=== PATIENT | female | born 1970 | race American Indian/Alaskan Native ===

== ENCOUNTER 2016-11-12 11:31 | Emergency (ER) | payer OTHER ==
--- NOTE | 2016-11-12 13:22 | EDM.PDOC ---
ED HPI GENERAL MEDICAL PROBLEM - General Chief Complaint: Diabetic Complaint Stated Complaint: CLAMMY FEELING, DIABETIC, BLURRY VISION Time Seen by Provider: 11/12/16 11:45 Source of Information: Reports: Patient History Limitations: Reports: No Limitations - History of Present Illness INITIAL COMMENTS - FREE TEXT/NARRATIVE: Maria Alejandra comes in with a 3 day hx of feeling run down, tired, some blurred vision, and fatiguabllity. 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 She takes Levemir U100 25 u bid, most recent FBS 323 mg% this am. She is not reporting wt loss, fever, chills, sweats, chest pain, SOB, Gi or upset, or rashes. She has not missed work, but did leave work early this am to come to the ED. - Related Data Allergies Allergy/AdvReac Type Severity Reaction Status Date / Time codeine Allergy Hives Verified 11/12/16 12:32 Home Meds: Home Meds Insulin Detemir [Levemir] 25 unit SQ BID 11/12/16 [History] Past Medical History Endocrine/Metabolic History: Reports: Diabetes, Type I Oncologic (Cancer) History: Reports: Cervix, Ovarian, Uterine Social & Family History - Tobacco Use Smoking Status *Q: Current Every Day Smoker Years of Tobacco use: 30 Packs/Tins Daily: 0.3 - Caffeine Use Caffeine Use: Reports: Coffee - Recreational Drug Use Recreational Drug Use: No ED ROS GENERAL - Review of Systems Review Of Systems: See Below Constitutional: Reports: Malaise, Fatigue HEENT: Reports: Other (blurred vision) Respiratory: Reports: No Symptoms Cardiovascular: Reports: No Symptoms Endocrine: Reports: Fatigue GI/Abdominal: Reports: No Symptoms : Reports: No Symptoms Musculoskeletal: Reports: No Symptoms Skin: Reports: No Symptoms Neurological: Reports: No Symptoms Psychiatric: Reports: No Symptoms Hematologic/Lymphatic: Reports: No Symptoms Immunologic: Reports: No Symptoms ED EXAM, GENERAL - Physical Exam Exam: See Below Exam Limited By: No Limitations General Appearance: Alert, WD/WN, No Apparent Distress, Lethargic Eye Exam: Bilateral Eye: Normal Inspection, PERRL Ears: Normal External Exam, Normal TMs Nose: Normal Inspection Throat/Mouth: Normal Inspection, Normal Oropharynx Head: Normocephalic Neck: Normal Inspection, Supple, Non-Tender, Full Range of Motion Respiratory/Chest: Lungs Clear, Normal Breath Sounds, Chest Non-Tender Cardiovascular: Regular Rate, Rhythm, No Murmur GI/Abdominal: Normal Bowel Sounds, Soft, Non-Tender, No Organomegaly, No Distention, No Mass (Female) Exam: Deferred Rectal (Female) Exam: Deferred Back Exam: Normal Inspection Extremities: Normal Inspection Neurological: Alert, Oriented, CN II-XII Intact, Normal Cognition, Normal Gait, No Motor/Sensory Deficits Psychiatric: Normal Affect, Depressed Mood Skin Exam: Warm, Dry, Intact Lymphatic: No Adenopathy Course - Vital Signs Text/Narrative:: Following assessment at the [facility] ED, screening labs included: Hgb 15.7 gm, WBC 5 ,700, plts 229,000; Na 131, K 3.9; non FBS 352 mg %; Aic 11.9 %; Troponin I < 0.01; UA noting sp gr 1.020, BS 4+, ket neg; diabetes is poorly controlled, and will adjust insulin management. - Orders/Labs/Meds Orders: Active Orders 24 hr Category Date Time Status EKG 12 Lead [EK] Routine Ther 11/12/16 11:56 Ordered Labs: Laboratory Tests 11/12/16 11/12/16 11/12/16 Range/Units 11:55 12:11 12:11 WBC 5.7 (4.5-12.0) X10-3/uL RBC 4.77 (3.23-5.20) x10(6)uL Hgb 15.7 H (11.5-15.5) g/dL Hct 46.1 (30.0-51.3) % MCV 96.6 H (80-96) fL MCH 33.0 (27.7-33.6) pg MCHC 34.2 (32.2-35.4) g/dL RDW 11.7 (11.5-15.5) % Plt Count 229 (125-369) X10(3)uL MPV 10.3 (7.4-10.4) fL Neut % (Auto) 62.5 (46-82) % Lymph % (Auto) 27.9 (13-37) % Iron % (Auto) 6.8 (4-12) % Eos % (Auto) 2 (1.0-5.0) % Baso % (Auto) 1 (0-2) % Neut # (Auto) 3.5 (1.6-8.3) # Lymph # (Auto) 1.6 (0.6-5.0) # Iron # (Auto) 0.4 (0.0-1.3) # Eos # (Auto) 0.1 (0.0-0.8) # Baso # (Auto) 0.1 (0.0-0.2) # Sodium 131 L (135-145) mmol/L Potassium 3.9 (3.5-5.3) mmol/L Chloride 102 (100-110) mmol/L Carbon Dioxide 23 (23-29) mmol/L BUN 8 (5-20) mg/dL Creatinine 0.5 L (0.6-1.3) mg/dL Est Cr Clr Drug Dosing TNP Estimated GFR (MDRD) > 60 (>60) BUN/Creatinine Ratio 16.0 (9-20) Glucose 352 H (80-116) mg/dL Hemoglobin A1c (4.0-6.0) % Calcium 9.4 (8.6-10.2) mg/dL Total Bilirubin 0.5 (0.1-1.3) mg/dL AST 24 (5-27) IU/L ALT 24 (14-26) IU/L Alkaline Phosphatase 79 (56-112) IU/L Troponin I (0.02-0.06) NG/ML Total Protein 7.2 (6.0-8.0) g/dL Albumin 3.8 (3.5-5.2) g/dL Globulin 3.4 g/dL Albumin/Globulin Ratio 1.1 Urine Color Yellow (YELLOW) Urine Appearance Slightly cloudy (CLEAR) Urine pH 5.0 (5.0-6.5) Ur Specific [place] 1.020 (1.010-1.025) Urine Protein Negative (NEGATIVE) mg/dL Urine Glucose (UA) >1000 H (NEGATIVE) mg/dL Urine Ketones Negative (NEGATIVE) mg/dL Urine Occult Blood Large H (NEGATIVE) Urine Nitrite Negative (NEGATIVE) Urine Bilirubin Negative (NEGATIVE) Urine Urobilinogen Normal (NEGATIVE) mg/dL Ur Leukocyte Esterase Negative (NEGATIVE) Urine WBC 0-5 (0) Ur Squamous Epith Cells Few H (NS,R,O) Urine Bacteria Few H (NS) 11/12/16 11/12/16 Range/Units 12:11 12:11 WBC (4.5-12.0) X10-3/uL RBC (3.23-5.20) x10(6)uL Hgb (11.5-15.5) g/dL Hct (30.0-51.3) % MCV (80-96) fL MCH (27.7-33.6) pg MCHC (32.2-35.4) g/dL RDW (11.5-15.5) % Plt Count (125-369) X10(3)uL MPV (7.4-10.4) fL Neut % (Auto) (46-82) % Lymph % (Auto) (13-37) % Iron % (Auto) (4-12) % Eos % (Auto) (1.0-5.0) % Baso % (Auto) (0-2) % Neut # (Auto) (1.6-8.3) # Lymph # (Auto) (0.6-5.0) # Iron # (Auto) (0.0-1.3) # Eos # (Auto) (0.0-0.8) # Baso # (Auto) (0.0-0.2) # Sodium (135-145) mmol/L Potassium (3.5-5.3) mmol/L Chloride (100-110) mmol/L Carbon Dioxide (23-29) mmol/L BUN (5-20) mg/dL Creatinine (0.6-1.3) mg/dL Est Cr Clr Drug Dosing Estimated GFR (MDRD) (>60) BUN/Creatinine Ratio (9-20) Glucose (80-116) mg/dL Hemoglobin A1c 11.9 H (4.0-6.0) % Calcium (8.6-10.2) mg/dL Total Bilirubin (0.1-1.3) mg/dL AST (5-27) IU/L ALT (14-26) IU/L Alkaline Phosphatase (56-112) IU/L Troponin I < 0.01 L (0.02-0.06) NG/ML Total Protein (6.0-8.0) g/dL Albumin (3.5-5.2) g/dL Globulin g/dL Albumin/Globulin Ratio Urine Color (YELLOW) Urine Appearance (CLEAR) Urine pH (5.0-6.5) Ur Specific [place] (1.010-1.025) Urine Protein (NEGATIVE) mg/dL Urine Glucose (UA) (NEGATIVE) mg/dL Urine Ketones (NEGATIVE) mg/dL Urine Occult Blood (NEGATIVE) Urine Nitrite (NEGATIVE) Urine Bilirubin (NEGATIVE) Urine Urobilinogen (NEGATIVE) mg/dL Ur Leukocyte Esterase (NEGATIVE) Urine WBC (0) Ur Squamous Epith Cells (NS,R,O) Urine Bacteria (NS) Departure - Departure Time of Disposition: 13:40 Disposition: Home, Self-Care 01 Condition: fair Clinical Impression: Type 2 diabetes mellitus Qualifiers: Diabetes mellitus complication status: with ophthalmic complications Diabetes mellitus complication detail: with other ophthalmic complication Diabetes mellitus detention insulin use: with 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 I advised increasing Levemir u-100 to 27 u SC bid, and continue glu-glu checks. Spouse was in attendance, and all questions were answered. 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
[2016-11-12 17:00] VITALS: BP 133/85
== END 2016-11-12 13:50 | disposition home or self-care (01) ==
LOC: FB.ED 11:31
DX: E11.39 Type 2 diabetes mellitus with other diabetic ophthalmic complication (principal); F17.210 Nicotine dependence, cigarettes, uncomplicated; Z79.4 Long term (current) use of insulin; Z88.5 Allergy status to narcotic agent
CPT/HCPCS: 36415; 80053; 81001; 83036; 84484; 85025; 93005; 99284

== ENCOUNTER 2018-07-18 06:20 | Emergency (ER) | payer OTHER ==
[2018-07-18] MEDS ORDERED: Lidocaine 2% 20 ML MDV INFILT ONE (06:21)
--- NOTE | 2018-07-18 06:54 | EDM.PDOC ---
ED HPI GENERAL MEDICAL PROBLEM - General Stated Complaint: LT INDEX FINGER LACERATION Time Seen by Provider: 07/18/18 06:49 Source of Information: Reports: Patient History Limitations: Reports: No Limitations - History of Present Illness INITIAL COMMENTS - FREE TEXT/NARRATIVE: Laceration by cutter at work,left pinky finger - Related Data Allergies Allergy/AdvReac Type Severity Reaction Status Date / Time codeine Allergy Hives Verified 11/12/16 12:32 Home Meds: Home Meds Insulin Detemir [Levemir] 25 unit SQ BID 11/12/16 [History] Past Medical History Endocrine/Metabolic History: Reports: Diabetes, Type I Oncologic (Cancer) History: Reports: Cervix, Ovarian, Uterine Social & Family History - Family History Family Medical History: Noncontributory - Caffeine Use Caffeine Use: Reports: Coffee, Soda Review of Systems - Review of Systems Review Of Systems: ROS reveals no pertinent complaints other than HPI. ED EXAM, GENERAL - Physical Exam Exam: See Below Free Text/Narrative:: 2 cm laceration involving left pinky finger,distal phalanx. No neurological deficit.Appears clean. Exam Limited By: No Limitations General Appearance: Alert, WD/WN ED TRAUMA EXTREMITY PROCEDURES - Laceration/Wound Repair Left Upper Distal Digit - 2nd (Index) Appearance: Superficial Distal NVT: Neuro & Vascular Intact, No Tendon Injury Anesthetic Type: Local Local Anesthesia - Lidocaine (Xylocaine): 2% Plain Local Anesthetic Volume: 4cc Skin Prep: Chlorhexidine (Hibiciens) Exploration/Debridement/Repair: In a Bloodless Field, No Foreign Material Found Closed With: Sutures Suture Size: 4-0 Suture Type: Prolene, Interrupted, Simple Departure - Departure Time of Disposition: 06:52 Disposition: Home, Self-Care 01 Condition: Good Clinical Impression: Laceration - Discharge Information Referrals: PCP,None [Primary Care Provider] - - Problem List & Annotations (1) Laceration SNOMED Code(s): 666647682 Code(s): YDD6241 - Status: Acute - Problem List Review Problem List Initiated/Reviewed/Updated: Yes - Assessment/Plan Plan: Placed 4 sutures after digital block with Lidocaine. Remove after 7 days
[2018-07-18 07:52] VITALS: BP 138/84
== END 2018-07-18 07:10 | disposition home or self-care (01) ==
LOC: FB.ED 06:20
DX: S61.217A Laceration without foreign body of left little finger without damage to nail, initial encounter (principal); E10.9 Type 1 diabetes mellitus without complications; Z88.5 Allergy status to narcotic agent; W26.9XXA Contact with unspecified sharp object(s), initial encounter; Y99.0 Civilian activity done for income or pay
CPT/HCPCS: 12001; 99282

== ENCOUNTER 2019-01-29 17:12 | Emergency (ER) | payer OTHER ==
--- NOTE | 2019-01-29 17:55 | EDM.PDOC ---
ED HPI GENERAL MEDICAL PROBLEM - General Chief Complaint: Lower Extremity Injury/Pain Stated Complaint: LT LEG WOUND INFECTED Time Seen by Provider: 01/29/19 17:50 Source of Information: Reports: Patient History Limitations: Reports: No Limitations - History of Present Illness INITIAL COMMENTS - FREE TEXT/NARRATIVE: Patient sustained a burn to her left lower leg on 01/17/19 when she became caught between a wall and a hot iron. Complains of pain to the area. Has not sought medical attention. Had been applying Silvadene cream, but ran out. Is also out of Levimir, prescription will be delivered in 2 days. She is taking Tylenol and Ibuprofen for pain. Endorses subjective fever. 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, NSAIDS L lateral calf Pain Score (Numeric/FACES): 8 - Related Data Allergies Allergy/AdvReac Type Severity Reaction Status Date / Time codeine Allergy Hives Verified 01/29/19 17:21 Home Meds: Home Meds Insulin Detemir [Levemir] 60 unit SQ BID 11/12/16 [History] Amoxicillin/Clavulanate K [Augmentin 875-125 MG] 1 tab PO BID #20 tablet [Rx] Gabapentin [Neurontin] 100 mg PO TID 01/29/19 [History] Silver Sulfadiazine [Silvadene 1% Cream 400 GM] 20 gm TOP DAILY #1 jar 01/29/19 [Rx] metFORMIN [Glucophage] 500 mg PO TIDMEALS 01/29/19 [History] Past Medical History Cardiovascular History: Reports: Hypertension Gastrointestinal History: Reports: GERD Genitourinary History: Reports: None 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 Oncologic (Cancer) History: Reports: Cervix Other Oncologic History: precancerous cells - Infectious Disease History Infectious Disease History: Reports: Chicken Pox - Past Surgical History GI Surgical History: Reports: Appendectomy, Cholecystectomy Female Surgical History: Reports: Section, Tubal Ligation Other Female Surgeries/Procedures: CS x 4 Social & Family History - Family History Family Medical History: Noncontributory - Tobacco Use Smoking Status *Q: Former Smoker Years of Tobacco use: 1 Used Tobacco, but Quit: Yes Month/Year Tobacco Last Used: 1989 - Caffeine Use Caffeine Use: Reports: Coffee, Tea - Recreational Drug Use Recreational Drug Use: No Review of Systems - Review of Systems Review Of Systems: ROS reveals no pertinent complaints other than HPI. ED EXAM, GENERAL - Physical Exam Exam: See Below Exam Limited By: No Limitations General Appearance: Alert, WD/WN, No Apparent Distress Nose: Normal Inspection Throat/Mouth: No Airway Compromise Head: Atraumatic Neck: Full Range of Motion Respiratory/Chest: No Respiratory Distress Peripheral Pulses: 2+: Dorsalis Pedis (L) Extremities: Other (11 x 3 cm left lower leg burn, scabbed, weeping clear serosanguinous fluid, mild surrounding reactive erythema, no cellulitis.) Neurological: Alert, Normal Cognition Skin Exam: Other (as above) Course - Vital Signs Last Recorded V/S: Last Vital Signs Temp 36.8 C 01/29/19 17:20 Pulse 90 01/29/19 17:20 Resp 18 01/29/19 17:20 BP 138/85 01/29/19 17:20 Pulse Ox 99 01/29/19 17:20 - Orders/Labs/Meds Orders: Active Orders 24 hr Category Date Time Status Accu Check [Blood Glucose Check, Bedside] [RC] ONETIME Care 01/29/19 17:37 Ordered Amoxicillin/Clavulanate K [Augmentin 875 MG/125 MG] Med 01/29/19 17:47 Once 1 tab PO ONETIME ONE Medication Orders Amoxicillin/Clavulanate Potassium (Augmentin 875 Mg/125 Mg) 1 tab PO ONETIME ONE Stop: 01/29/19 17:48 Meds: Medications Generic Name Dose Route Start Last Admin Trade Name Freq PRN Reason Stop Dose Admin Amoxicillin/Clavulanate Potassium 1 tab 01/29/19 17:47 Augmentin 875 Mg/125 Mg PO 01/29/19 17:48 ONETIME ONE Discontinued Medications Generic Name Dose Route Start Last Admin Trade Name Freq PRN Reason Stop Dose Admin Silver Sulfadiazine 400 gm 01/29/19 17:46 Silvadene 1% Cream 400 Gm TOP 01/29/19 17:47 ONETIME ONE - Re-Assessments/Exams Free Text/Narrative Re-Assessment/Exam: 01/29/19 18:02 Accu check: 305 Departure - Departure Time of Disposition: 18:01 Disposition: Home, Self-Care 01 Condition: Good Clinical Impression: Burn of leg, left, second degree Qualifiers: Encounter type: initial encounter Qualified Code(s): T24.202A - Burn of second degree of unspecified site of left lower limb, except ankle and foot, initial encounter - Discharge Information *PRESCRIPTION DRUG MONITORING PROGRAM REVIEWED*: No *COPY OF PRESCRIPTION DRUG MONITORING REPORT IN PATIENT CRISTINO: Not Applicable Prescriptions: Amoxicillin/Clavulanate K [Augmentin 875-125 MG] 1 tab PO BID #20 tablet Silver Sulfadiazine [Silvadene 1% Cream 400 GM] 20 gm TOP DAILY #1 jar Instructions: Burn Care, Adult, [id number] Referrals: Zheng Mc MD [Physician] - 3 Days Additional Instructions: Fill the prescriptions for Silvadene and Augmentin and take as directed. Continue Tylenol and/or Ibuprofen as needed to control pain. Follow up with Dr. Mc in 2-3 days. Return to the ER if symptoms worsen. - My Orders Last 24 Hours: My Active Orders 01/29/19 17:37 Accu Check [Blood Glucose Check, Bedside] [RC] ONETIME 01/29/19 17:47 Amoxicillin/Clavulanate K [Augmentin 875 MG/125 MG] 1 tab PO ONETIME ONE - Assessment/Plan Last 24 Hours: My Active Orders 01/29/19 17:37 Accu Check [Blood Glucose Check, Bedside] [RC] ONETIME 01/29/19 17:47 Amoxicillin/Clavulanate K [Augmentin 875 MG/125 MG] 1 tab PO ONETIME ONE
[2019-01-29] MEDS: Amoxicillin/Clavulanate K 875-125 MG Tab PO ONE (18:08)
[2019-01-29] MEDS: Silver Sulfadiazine 1% Crm 400 GM Jar TOP ONE (18:09)
[2019-01-29] MEDS: Silver Sulfadiazine 1% Crm 50 GM Tube TOP ONE (18:09)
[2019-01-29 19:16] VITALS: BP 148/91
== END 2019-01-29 18:28 | disposition home or self-care (01) ==
LOC: FB.ED 17:12
DX: T24.202A Burn of second degree of unspecified site of left lower limb, except ankle and foot, initial encounter (principal); E11.9 Type 2 diabetes mellitus without complications; Z86.2 Personal history of diseases of the blood and blood-forming organs and certain disorders involving the immune mechanism; Z87.891 Personal history of nicotine dependence; Z88.5 Allergy status to narcotic agent; Z79.4 Long term (current) use of insulin; Z79.899 Other long term (current) drug therapy; X15.8XXA Contact with other hot household appliances, initial encounter
CPT/HCPCS: 82962; 99282; A9270

== ENCOUNTER 2019-05-04 10:20 | Emergency (ER) | payer OTHER ==
--- NOTE | 2019-05-04 10:42 | EDM.PDOC ---
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 There was no noise or reported swelling. There is no prior injury to L ankle. She has taken no meds. - Related Data Allergies Allergy/AdvReac Type Severity Reaction Status Date / Time codeine Allergy Hives Verified 01/29/19 17:21 Home Meds: Home Meds Insulin Detemir [Levemir] 60 unit SQ BID 11/12/16 [History] Amoxicillin/Clavulanate K [Augmentin 875-125 MG] 1 tab PO BID #20 tablet [Rx] Gabapentin [Neurontin] 100 mg PO TID 01/29/19 [History] Silver Sulfadiazine [Silvadene 1% Cream 400 GM] 20 gm TOP DAILY #1 jar 01/29/19 [Rx] metFORMIN [Glucophage] 500 mg PO TIDMEALS 01/29/19 [History] Past Medical History Cardiovascular History: Reports: Hypertension Gastrointestinal History: Reports: GERD Genitourinary History: Reports: None 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 Oncologic (Cancer) History: Reports: Cervix Other Oncologic History: precancerous cells - Infectious Disease History Infectious Disease History: Reports: Chicken Pox - Past Surgical History GI Surgical History: Reports: Appendectomy, Cholecystectomy Female Surgical History: Reports: Section, Tubal Ligation Other Female Surgeries/Procedures: CS x 4 Social & Family History - Family History Family Medical History: Noncontributory - Caffeine Use Caffeine Use: Reports: Coffee, Tea Review of Systems - Review of Systems Review Of Systems: Comprehensive ROS is negative, except as noted in HPI. ED EXAM, GENERAL - Physical Exam Exam: See Below Exam Limited By: No Limitations General Appearance: Alert, WD/WN, Mild Distress Head: Atraumatic, Normocephalic Neck: Normal Inspection Respiratory/Chest: Lungs Clear, Chest Non-Tender Cardiovascular: Regular Rate, Rhythm Back Exam: Normal Inspection Extremities: Limited Range of Motion (L ankle: no visible swelling, tenderness overlying lateral malleolus, no joint effusion, mild tenderness of ant tib- talar ligament; drawer sign neg.; no forefoot or midfoot injury apparent) Neurological: Alert, Oriented, CN II-XII Intact, No Motor/Sensory Deficits Psychiatric: Normal Affect, Normal Mood Skin Exam: Warm, Dry, Intact, Normal Color Lymphatic: No Adenopathy Course - Vital Signs Text/Narrative:: I reviewed x rays of L ankle, no visible deformity identified. She was fitted with an AirCast splint. Last Recorded V/S: Last Vital Signs Temp 36.6 C 05/04/19 10:20 Pulse 91 05/04/19 10:20 Resp 17 05/04/19 10:20 BP 146/85 H 05/04/19 10:20 Pulse Ox 97 05/04/19 10:20 - Orders/Labs/Meds Orders: Active Orders 24 hr Category Date Time Status Ankle Min 3V Lt [CR] Stat Exams 05/04/19 10:34 Ordered Departure - Departure Time of Disposition: 10:53 Disposition: Home, Self-Care 01 Condition: Fair Clinical Impression: Sprain of left ankle Qualifiers: Encounter type: initial encounter Involved ligament of ankle: tibiofibular ligament Qualified Code(s): S93.432A - Sprain of tibiofibular ligament of left ankle, initial encounter - Discharge Information *PRESCRIPTION DRUG MONITORING PROGRAM REVIEWED*: Not Applicable *COPY OF PRESCRIPTION DRUG MONITORING REPORT IN PATIENT CRISTINO: Not Applicable Forms: ED Department Discharge - Problem List & Annotations (1) Sprain of left ankle SNOMED Code(s): 56389887, [id number] Code(s): S93.402A - SPRAIN OF UNSPECIFIED LIGAMENT OF LEFT ANKLE, INIT ENCNTR Status: Acute Annotation/Comment:: Ibuprofen or Alleve for pain, AirCase splint, RICE, and work restrictions over the next 2 weeks. Qualifiers: Encounter type: initial encounter Involved ligament of ankle: tibiofibular ligament Qualified Code(s): S93.432A - Sprain of tibiofibular ligament of left ankle, initial encounter - Problem List Review Problem List Initiated/Reviewed/Updated: Yes - My Orders Last 24 Hours: My Active Orders 05/04/19 10:34 Ankle Min 3V Lt [CR] Stat - Assessment/Plan Last 24 Hours: My Active Orders 05/04/19 10:34 Ankle Min 3V Lt [CR] Stat Plan: Follow up with PCP for medical clearance for work in 2 weeks.
--- NOTE | 2019-05-04 11:39 | CR ---
INDICATION: Inversion left ankle injury, sprain likely, pain lateral. LEFT ANKLE: Three views of the left ankle revealed mild hypertrophic changes, compatible with a mild degree of osteoarthritis at the ankle mortise, especially laterally. No significant soft tissue swelling was noted. The ankle mortise appeared to be intact with space appearing fairly symmetrical. A fracture, dislocation, or other acute bone or joint abnormality was not identified. There may be a slight degree of decreased density of the bone in the metaphyseal areas of questionable significance. This could be related to arthritis but should be correlated clinically. A tiny posterior calcaneal spur and small plantar calcaneal spur are noted. IMPRESSION: No acute fracture or dislocation - findings as noted above. Report was given in person to Dr. Hernandez as soon as the examination was completed on 05/04/19. DARRYL
[2019-05-04 12:55] VITALS: BP 147/85; PULSE 84
== END 2019-05-04 12:48 | disposition home or self-care (01) ==
LOC: FB.ED 10:20
DX: S93.432A Sprain of tibiofibular ligament of left ankle, initial encounter (principal); I10 Essential (primary) hypertension; E11.9 Type 2 diabetes mellitus without complications; Z79.4 Long term (current) use of insulin; Z88.6 Allergy status to analgesic agent; X50.1XXA Overexertion from prolonged static or awkward postures, initial encounter
CPT/HCPCS: 73610-LT; 99000; 99283-25

== ENCOUNTER 2020-03-10 20:19 | Emergency (ER) | payer SELFPAY ==
[2020-03-10] MEDS ORDERED: Ciprofloxacin 500 MG Tab PO ONE (20:20)
[2020-03-10 20:32] VITALS: BP 150/80; PULSE 96
--- NOTE | 2020-03-10 21:19 | EDM.PDOC ---
ED HPI GENERAL MEDICAL PROBLEM - General Chief Complaint: Abdominal Pain Stated Complaint: BACK PAIN Time Seen by Provider: 03/10/20 21:14 Source of Information: Reports: Patient History Limitations: Reports: No Limitations - History of Present Illness INITIAL COMMENTS - FREE TEXT/NARRATIVE: Complains of lower pelvic pain,back pain and urinary symptoms of hematuria,frequency and dysuria.. These started two days ago,worse today.Associated with nausea today. She is a diabetic. Treatments RESIDENT CARE SPEC: Reports: Acetaminophen Lower Abdominal Pain Score (Numeric/FACES): 9 - Related Data Allergies Allergy/AdvReac Type Severity Reaction Status Date / Time codeine Allergy Hives Verified 01/29/19 17:21 Home Meds: Home Meds Gabapentin [Neurontin] 100 mg PO TID 01/29/19 [History] metFORMIN [Glucophage] 500 mg PO TIDMEALS 01/29/19 [History] Insulin Glarg,Human.Rec.Analog [Lantus Solostar] 70 unit SUBCUT DAILY 03/10/20 [History] Past Medical History Cardiovascular History: Reports: Hypertension Gastrointestinal History: Reports: GERD Genitourinary History: Reports: None 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 Oncologic (Cancer) History: Reports: Cervix Other Oncologic History: precancerous cells - Infectious Disease History Infectious Disease History: Reports: Chicken Pox - Past Surgical History GI Surgical History: Reports: Appendectomy, Cholecystectomy Female Surgical History: Reports: Section, Tubal Ligation Other Female Surgeries/Procedures: CS x 4 Social & Family History - Family History Family Medical History: Noncontributory - Tobacco Use Smoking Status *Q: Current Every Day Smoker Years of Tobacco use: 20 Packs/Tins Daily: 0.5 - Caffeine Use Caffeine Use: Reports: Coffee, Tea ED ROS GENERAL - Review of Systems Review Of Systems: Comprehensive ROS is negative, except as noted in HPI. ED EXAM, RENAL/ - Physical Exam Exam: See Below Exam Limited By: No Limitations General Appearance: Alert, WD/WN Ears: Normal External Exam Nose: Normal Inspection Throat/Mouth: Normal Inspection Head: Atraumatic GI/Abdominal: Soft, Tender (Female) Exam: Deferred Course - Vital Signs Last Recorded V/S: Last Vital Signs Temp 98.1 F 03/10/20 20:29 Pulse 96 03/10/20 20:29 Resp 16 03/10/20 20:29 BP 150/80 H 03/10/20 20:29 Pulse Ox 98 03/10/20 20:29 - Orders/Labs/Meds Orders: Active Orders 24 hr Category Date Time Status BASIC METABOLIC PANEL,BMP [CHEM] Stat Lab 03/10/20 20:42 Ordered CBC WITH AUTO DIFF [HEME] Stat Lab 03/10/20 20:42 Ordered CULTURE URINE [RM] Stat Lab 03/10/20 21:04 Ordered Labs: Laboratory Tests 03/10/20 Range/Units 20:36 Urine Color Yellow (YELLOW) Urine Appearance Cloudy (CLEAR) Urine pH 5.0 (5.0-6.5) Ur Specific [place] 1.020 (1.010-1.025) Urine Protein 100 H (NEGATIVE) mg/dL Urine Glucose (UA) 50 H (NORMAL) mg/dL Urine Ketones Negative (NEGATIVE) mg/dL Urine Occult Blood Large H (NEGATIVE) Urine Nitrite Negative (NEGATIVE) Urine Bilirubin Negative (NEGATIVE) Urine Urobilinogen Normal (NEGATIVE) mg/dL Ur Leukocyte Esterase Large H (NEGATIVE) Urine RBC 5-10 H (0-5) Urine WBC 75-100 H (0-5) Ur Squamous Epith Cells Few H (NS,R,O) Urine Bacteria Few H (NS) Urine Mucus Few H (NS) Departure - Departure Time of Disposition: 21:18 Disposition: Home, Self-Care 01 Clinical Impression: Acute pyelonephritis, Pyelonephritis - Discharge Information Referrals: PCP,None [Primary Care Provider] - Sepsis Event Note (ED) - Evaluation Sepsis Screening Result: No Definite Risk - Focused Exam Vital Signs: Vital Signs Temp Pulse Resp BP Pulse Ox 03/10/20 20:29 98.1 F 96 16 150/80 H 98 - Problem List & Annotations (1) Acute pyelonephritis SNOMED Code(s): 52634476 Code(s): N10 - ACUTE PYELONEPHRITIS Status: Acute Current Visit: Yes - Problem List Review Problem List Initiated/Reviewed/Updated: Yes - My Orders Last 24 Hours: My Active Orders 03/10/20 20:42 BASIC METABOLIC PANEL,BMP [CHEM] Stat CBC WITH AUTO DIFF [HEME] Stat 03/10/20 21:04 CULTURE URINE [RM] Stat - Assessment/Plan Last 24 Hours: My Active Orders 03/10/20 20:42 BASIC METABOLIC PANEL,BMP [CHEM] Stat CBC WITH AUTO DIFF [HEME] Stat 03/10/20 21:04 CULTURE URINE [RM] Stat Plan: Cipro 500 mg po BID x 1 week
== END 2020-03-10 21:25 | disposition home or self-care (01) ==
LOC: FB.ED 20:19
DX: N10 Acute pyelonephritis (principal); I10 Essential (primary) hypertension; E11.9 Type 2 diabetes mellitus without complications; F17.210 Nicotine dependence, cigarettes, uncomplicated; Z90.49 Acquired absence of other specified parts of digestive tract; Z98.890 Other specified postprocedural states; Z88.5 Allergy status to narcotic agent; Z79.4 Long term (current) use of insulin
CPT/HCPCS: 36415; 80048; 81001; 85025; 87086; 99284; A9270; 99283

== ENCOUNTER 2020-11-01 05:09 | Emergency (ER) | payer SELFPAY ==
[2020-11-01 05:20] VITALS: BP 145/75; PULSE 80
[2020-11-01] MEDS ORDERED: Ondansetron 4 MG Tab.DIS PO ONE (05:24)
[2020-11-01] MEDS ORDERED: Meclizine 25 MG Tab PO ONE (05:49)
--- NOTE | 2020-11-01 05:55 | EDM.PDOC ---
ED HPI GENERAL MEDICAL PROBLEM - General Chief Complaint: General Stated Complaint: NAUSEA Time Seen by Provider: 11/01/20 05:17 Source of Information: Reports: Patient, Family History Limitations: Reports: No Limitations - History of Present Illness INITIAL COMMENTS - FREE TEXT/NARRATIVE: Patient presented to the ed because of nausea and dizziness for 4 days. She described it as spinning sensation there is no fever ,chills,cough or cold symptoms. 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 Oncologic (Cancer) History: Reports: Cervix Other Oncologic History: precancerous cells - Infectious Disease History Infectious Disease History: Reports: Chicken Pox - Past Surgical History GI Surgical History: Reports: Appendectomy, Cholecystectomy Female Surgical History: Reports: Section, Tubal Ligation Other Female Surgeries/Procedures: CS x 4 Social & Family History - Family History Family Medical History: No Pertinent Family History - Tobacco Use Tobacco Use Status *Q: Never Tobacco User - Caffeine Use Caffeine Use: Reports: None - Recreational Drug Use Recreational Drug Use: No ED ROS GENERAL - Review of Systems Review Of Systems: See Below Constitutional: Reports: No Symptoms HEENT: Reports: No Symptoms Respiratory: Reports: No Symptoms Cardiovascular: Reports: No Symptoms Endocrine: Reports: No Symptoms GI/Abdominal: Reports: Nausea Neurological: Reports: Dizziness Psychiatric: Reports: No Symptoms Hematologic/Lymphatic: Reports: No Symptoms Immunologic: Reports: No Symptoms ED EXAM, GENERAL - Physical Exam Exam: See Below Exam Limited By: No Limitations General Appearance: Alert, No Apparent Distress Ears: Normal External Exam, Normal Canal Nose: Normal Inspection, Normal Mucosa, No Blood Throat/Mouth: Normal Inspection, Normal Lips, Normal Teeth Head: Atraumatic, Normocephalic Neck: Normal Inspection, Supple, Non-Tender Respiratory/Chest: No Respiratory Distress, Lungs Clear, Normal Breath Sounds GI/Abdominal: Normal Bowel Sounds, Soft, Non-Tender, No Organomegaly Back Exam: Normal Inspection, Full Range of Motion Extremities: Normal Inspection, Normal Range of Motion, Non-Tender, No Pedal Edema, Normal Capillary Refill Neurological: Alert, Oriented, CN II-XII Intact, Normal Cognition, Normal Gait, Normal Reflexes, No Motor/Sensory Deficits Psychiatric: Normal Affect Course - Vital Signs Text/Narrative:: Meclizine 25 mg PO x` Zofra ODT 4 mg PO x 2 doses Last Recorded V/S: Last Vital Signs Temp 36.7 C 11/01/20 05:17 Pulse 80 11/01/20 05:17 Resp 18 11/01/20 05:17 BP 145/75 H 11/01/20 05:17 Pulse Ox 100 11/01/20 05:17 - Orders/Labs/Meds Labs: Laboratory Tests 11/01/20 11/01/20 Range/Units 06:02 06:02 WBC 5.3 (3.0-10.3) x10-3/uL RBC 4.01 (3.60-5.20) x10(6)uL Hgb 13.7 (11.4-15.5) g/dL Hct 39.9 (34.2-48.2) % MCV 99.5 (76.7-100.5) fL MCH 34.3 H (23.9-33.9) pg MCHC 34.5 (31.9-34.8) g/dL RDW 12.3 (12.3-16.5) % Plt Count 272 (151-488) x10(3)uL MPV 9.5 (7.1-12.4) fL Neut % (Auto) 56.4 (30.8-76.2) % Lymph % (Auto) 33.5 (18.4-52.1) % [place] % (Auto) 7.4 (4.4-15.7) % Eos % (Auto) 1.8 (0.6-8.1) % Baso % (Auto) 0.9 (0.2-1.5) % Neut # (Auto) 3.0 (1.5-6.3) x10-3/uL Lymph # (Auto) 1.8 (1.0-4.4) x10-3/uL [place] # (Auto) 0.4 (0.3-1.0) x10-3/uL Eos # (Auto) 0.1 (0.0-0.8) x10-3/uL Baso # (Auto) 0.0 (0.0-0.1) x10-3/uL Sodium 139 (135-145) mmol/L Potassium 4.1 (3.5-5.3) mmol/L Chloride 102 (100-110) mmol/L Carbon Dioxide 27 (21-32) mmol/L BUN 17 (7-18) mg/dL Creatinine 0.7 (0.55-1.02) mg/dL Est Cr Clr Drug Dosing TNP Estimated GFR (MDRD) > 60 (>60) BUN/Creatinine Ratio 24.3 H (9-20) Glucose 154 H (80-116) mg/dL Calcium 8.1 L (8.6-10.2) mg/dL Meds: Medications Discontinued Medications Generic Name Dose Route Start Last Admin Trade Name Freq PRN Reason Stop Dose Admin Meclizine HCl 25 mg 11/01/20 05:49 11/01/20 05:54 Meclizine 25 Mg Tab PO 11/01/20 05:50 25 mg ONETIME ONE Administration Ondansetron HCl 4 mg 11/01/20 05:24 11/01/20 05:29 Ondansetron 4 Mg Tab.Dis PO 11/01/20 05:25 4 mg ONETIME ONE Administration Ondansetron HCl 4 mg 11/01/20 05:59 11/01/20 06:02 Ondansetron 4 Mg Tab.Dis PO 11/01/20 06:00 4 mg NOW STA Administration Departure - Departure Time of Disposition: 06:00 Disposition: Home, Self-Care 01 Condition: Good Clinical Impression: BPV (benign positional vertigo) - Discharge Information Prescriptions: Meclizine [Antivert] 25 mg PO Q6H PRN #15 tab PRN Reason: vertigo Instructions: Vertigo, [id number] Referrals: PCP,None [Primary Care Provider] - Forms: ED Department Discharge Additional Instructions: Please read discharge instructions on vertigo Increase oral fluids at least 2 liters a day Meclizine 25 mg every 6 hours as needed for vertigo Follow up as needed Sepsis Event Note (ED) - Evaluation Sepsis Screening Result: No Definite Risk - Focused Exam Vital Signs: Vital Signs Temp Pulse Resp BP Pulse Ox 11/01/20 05:17 36.7 C 80 18 145/75 H 100
[2020-11-01] MEDS ORDERED: Ondansetron 4 MG Tab.DIS PO STA (05:59)
== END 2020-11-01 06:11 | disposition home or self-care (01) ==
LOC: FB.ED 05:09
DX: H81.10 Benign paroxysmal vertigo, unspecified ear (principal); I10 Essential (primary) hypertension; E11.40 Type 2 diabetes mellitus with diabetic neuropathy, unspecified; Z79.4 Long term (current) use of insulin; Z79.899 Other long term (current) drug therapy; Z88.5 Allergy status to narcotic agent
CPT/HCPCS: 36415; 80048; 85025; 99284; A9270

== ENCOUNTER 2021-02-08 11:19 | Emergency (ER) | payer OTHER ==
[2021-02-08 11:34] VITALS: BP 156/87; PULSE 84
--- NOTE | 2021-02-08 11:43 | EDM.PDOC ---
ED HPI GENERAL MEDICAL PROBLEM - General Chief Complaint: Lower Extremity Injury/Pain Stated Complaint: HURT RIGHT LEG Time Seen by Provider: 02/08/21 11:40 Source of Information: Reports: Patient History Limitations: Reports: No Limitations - History of Present Illness INITIAL COMMENTS - FREE TEXT/NARRATIVE: 50-year-old female who reports at about 7 to 8 AM on 02/04/2021 she was at work and she was trying to step over a bag of garbage and her foot got tangled into the back and she lost her balance and fell and hitting her right knee. She states she had pain immediately but was able to ambulate has been working daily since then but the pain in her knee has progressively worsened with time. She reports the pain is a sharp pain. She reports she is unable to bear weight on her right leg secondary to the pain. She rates the pain as a 10/10. It is worse with any movement and with outpatient over the medial aspect of the knee she is able to bend the knee but there is pain with bending and palpation and she tries to stand and bear weight on her right leg. She also has noted swelling in the right knee. There is no increase in warmth. She does report some tingling in her right foot. No other injuries. No nausea or vomiting. There are no other associated signs or symptoms. There are no other modifying factors. 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, NSAIDS Right Leg Pain Score (Numeric/FACES): 10 - Related Data Allergies Allergy/AdvReac Type Severity Reaction Status Date / Time codeine Allergy Hives Verified 01/29/19 17:21 Home Meds: Home Meds Gabapentin [Neurontin] 100 mg PO TID 01/29/19 [History] Insulin Glarg,Human.Rec.Analog [Lantus Solostar] 70 unit SUBCUT DAILY 03/10/20 [History] traMADol [Ultram] 50 mg PO Q6H PRN #15 tab 02/08/21 [Rx] 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 Oncologic (Cancer) History: Reports: Cervix Other Oncologic History: precancerous cells - Infectious Disease History Infectious Disease History: Reports: Chicken Pox - Past Surgical History GI Surgical History: Reports: Appendectomy, Cholecystectomy Female Surgical History: Reports: Section, Tubal Ligation Other Female Surgeries/Procedures: CS x 4 Social & Family History - Tobacco Use Tobacco Use Status *Q: Current Every Day Tobacco User - Caffeine Use Caffeine Use: Reports: None - Alcohol Use Alcohol Use History: Yes Alcohol Use Frequency: Socially - Living Situation & Occupation Living situation: Reports: Occupation: Employed (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 Denies: Back Pain Skin: Denies: Diaphoresis, Rash Neurological: Reports: Dizziness. Denies: Headache Psychiatric: Denies: Confusion, Anxiety ED EXAM, GENERAL - Physical Exam Exam: See Below Exam Limited By: No Limitations General Appearance: Alert, WD/WN, Moderate Distress (Appears in pain.) Eye Exam: Bilateral Eye: EOMI, Normal Inspection, PERRL Ears: Normal External Exam, Hearing Grossly Normal Ear Exam: Bilateral Ear: Auricle Normal Nose: Normal Inspection, Normal Mucosa, No Blood Throat/Mouth: Normal Inspection, Normal Lips Head: Atraumatic, Normocephalic Neck: Normal Inspection, Supple, Non-Tender, Full Range of Motion Respiratory/Chest: No Respiratory Distress, Lungs Clear, Normal Breath Sounds, No Accessory Muscle Use, Chest Non-Tender Cardiovascular: Normal Peripheral Pulses, Regular Rate, Rhythm, No JVD Peripheral Pulses: 2+: Radial (L), Radial (R), Dorsalis Pedis (L), Dorsalis Pedis (R) GI/Abdominal: Normal Bowel Sounds, Soft, Non-Tender, No Mass Back Exam: Normal Inspection, Full Range of Motion Extremities: Normal Capillary Refill, Joint Swelling, Limited Range of Motion (Secondary to pain). No: Increased Warmth Neurological: Alert, Oriented, CN II-XII Intact, Normal Cognition, No Motor/Sensory Deficits Psychiatric: Normal Affect Skin Exam: Warm, Dry, Intact, Normal Color, No Rash Course - Vital Signs Last Recorded V/S: Last Vital Signs Temp 37.0 C 02/08/21 11:30 Pulse 84 02/08/21 11:30 Resp 20 02/08/21 11:30 BP 156/87 H 02/08/21 11:30 Pulse Ox 97 02/08/21 11:30 - Orders/Labs/Meds Orders: Active Orders 24 hr Category Date Time Status Clemente Bandage [RC] ONETIME Care 02/08/21 12:37 Ordered Knee 1V or 2V Rt [CR] Stat Exams 02/08/21 11:56 Taken Meds: Medications Discontinued Medications Generic Name Dose Route Start Last Admin Trade Name Girish PRN Reason Stop Dose Admin Hydrocodone Bitart/Acetaminophen 2 tab 02/08/21 11:56 02/08/21 12:00 Acetaminophen/Hydrocodone 325-5 Mg Tab PO 02/08/21 11:57 2 tab ONETIME ONE Administration Diphenhydramine HCl 50 mg 02/08/21 12:34 Diphenhydramine 50 Mg/Ml Sdv IM 02/08/21 12:35 ONETIME ONE - Radiology Interpretation Free Text/Narrative:: Right knee x-ray shows no acute fracture per my read. - Re-Assessments/Exams Free Text/Narrative Re-Assessment/Exam: 02/08/21 12:35: The x-ray of the patient's right knee shows no fracture or malalignment. Her pain is improved after the hydrocodone 5/325, however, she is having itching in her face it does appear to be somewhat reddened. We will give her Benadryl 50 mg IM and observe her for a period of time. She appears to be having an allergic reaction to the hydrocodone. She states that she has had tramadol in the past and it has helped her with pain and she has had no allergic reaction to it. The patient will also need crutches with limited weightbearing on her right leg. She is followed through the [facility] and she tells me that she needs to go through them to get a referral to orthopedics and she will need orthopedic specially services and I have advised her to arrange a clinic visit at the [facility] so that she can be referred. 02/08/21 12:56: The redness in the patient's face has resolved. She no longer h as any itching. She feels much improved. I will have the patient Benadryl for times a day for the next 24 hours and then as needed for allergic reaction. We will place an Clemente wrap on her right knee and give her crutches and she will be ready for discharge. Departure - Departure Time of Disposition: 13:00 Disposition: Home, Self-Care Clinical Impression: Internal derangement of right knee Right knee pain Qualifiers: Chronicity: acute Qualified Code(s): M25.561 - Pain in right knee Allergic reaction caused by a drug Qualifiers: Encounter type: initial encounter Qualified Code(s): T78.40XA - Allergy, unspecified, initial encounter - Discharge Information Prescriptions: traMADol [Ultram] 50 mg PO Q6H PRN #15 tab PRN Reason: Moderate to severe pain Instructions: Crutch Use, Adult, [id number], Allergies, Adult, [id number] Forms: ED Department Discharge, ED Return to Work/School Form Additional Instructions: The x-rays of your right knee showed no fracture. You do appear to have some rigidity to the ligaments or the cartilage in your right knee. Use the Clemente wrap for comfort and support. Use crutches with no weightbearing on your. You will need to follow-up with your primary provider [facility] clinic and you will most probably need a referral to an systems specialist. You can take ibuprofen 600-800 mg by mouth every 6-8 hours as needed for pain. You can also take Tylenol 1000 mg by mouth every 6 hours as needed for pain. Medication as prescribed (tramadol 50 mg). You also appeared to have had an allergic reaction to hydrocodone. You'll need to take Benadryl 50 mg by mouth in the day for the next 24 hours and then as needed for allergic reaction. Back to the emergency department for redness in the right knee, fever, trouble breathing or any other concerning signs or symptoms. Sepsis Event Note (ED) - Evaluation Sepsis Screening Result: No Definite Risk - Focused Exam Vital Signs: Vital Signs Temp Pulse Resp BP Pulse Ox 02/08/21 11:30 37.0 C 84 20 156/87 H 97 - My Orders Last 24 Hours: My Active Orders 02/08/21 11:56 Knee 1V or 2V Rt [CR] Stat 02/08/21 12:37 Clemente Bandage [RC] ONETIME - Assessment/Plan Last 24 Hours: My Active Orders 02/08/21 11:56 Knee 1V or 2V Rt [CR] Stat 02/08/21 12:37 Clemente Bandage [RC] ONETIME
[2021-02-08] MEDS ORDERED: Acetaminophen/HYDROcodone 325-5 MG Tab PO ONE (11:56)
[2021-02-08] MEDS ORDERED: diphenhydrAMINE 50 MG/ML SDV IM ONE (12:34)
--- NOTE | 2021-02-08 15:58 | CR ---
INDICATION: Fall with injury on Saturday, posterior. RIGHT KNEE: Frontal and lateral views of the right knee revealed no evidence of an acute fracture, dislocation or other significant bone or joint abnormality. If symptoms persist - if occult fracture site is suspected clinically, reexamination in 10 to 14 days, or more advanced imaging, may be helpful. [id number]
== END 2021-02-08 13:26 | disposition home or self-care (01) ==
LOC: FB.ED 11:19
DX: M23.91 Unspecified internal derangement of right knee (principal); T50.905A Adverse effect of unspecified drugs, medicaments and biological substances, initial encounter; E11.40 Type 2 diabetes mellitus with diabetic neuropathy, unspecified; Z88.5 Allergy status to narcotic agent; Z79.4 Long term (current) use of insulin; Z72.0 Tobacco use; W18.09XA Striking against other object with subsequent fall, initial encounter
CPT/HCPCS: 73560; 96372; 99283; A9270; J1200

== ENCOUNTER 2021-07-21 17:03 | Emergency (ER) | payer OTHER ==
[2021-07-21 18:27] LABS: ACETAMINOPHEN < 2 ug/mL (<2)
[2021-07-21] MEDS ORDERED: Insulin Regular, Human 100 Units/ML 3 ML Vial SUBCUT ONE (18:40)
[2021-07-21] MEDS ORDERED: 50% Dextrose in Water 50 ML Syringe IVPUSH PRN (18:40)
[2021-07-21] MEDS ORDERED: Glucagon,Human Recombinant 1 MG Vial IM PRN (18:40)
[2021-07-21] MEDS ORDERED: Insulin Glargine,Hum.Rec.Anlog 100 UNIT/ML 3 ML Pen ONE (22:11)
[2021-07-21] MEDS ORDERED: Insulin Glargine,Hum.Rec.Anlog 100 UNIT/ML 3 ML Pen SUBCUT ONE (22:11)
[2021-07-22 04:34] VITALS: BP 157/81; PULSE 86
[2021-07-22] MEDS ORDERED: Insulin Glargine,Hum.Rec.Anlog 100 UNIT/ML 3 ML Pen SUBCUT ONE (21:55)
== END 2021-07-22 04:15 | disposition still patient (30) ==
LOC: FB.ED 17:03
DX: F32.2 Major depressive disorder, single episode, severe without psychotic features (principal); T42.6X2A Poisoning by other antiepileptic and sedative-hypnotic drugs, intentional self-harm, initial encounter; E11.65 Type 2 diabetes mellitus with hyperglycemia; E11.40 Type 2 diabetes mellitus with diabetic neuropathy, unspecified; I10 Essential (primary) hypertension; K21.9 Gastro-esophageal reflux disease without esophagitis; Z20.822 Contact with and (suspected) exposure to COVID-19; Z79.4 Long term (current) use of insulin; Z88.5 Allergy status to narcotic agent; Z88.8 Allergy status to other drugs, medicaments and biological substances
CPT/HCPCS: 36415; 80048; 80076; 80143; 80179; 80307; 81001; 82947; 84443; 85027; 85610; 87635; 93005; 99285; A9270; J1815; U0002

== ENCOUNTER 2022-06-28 11:35 | Emergency (ER) | payer OTHER ==
[2022-06-28] MEDS ORDERED: Ketorolac 30 MG/ML SDV IVPUSH ONE (11:38)
[2022-06-28] MEDS ORDERED: Cyclobenzaprine 10 MG Tab PO ONE (11:38)
[2022-06-28] MEDS ORDERED: Morphine 4 MG/ML VIAL IVPUSH ONE (11:38)
[2022-06-28 13:09] VITALS: BP 144/78; PULSE 73
== END 2022-06-28 13:13 | disposition home or self-care (01) ==
LOC: FB.ED 11:35
DX: S39.012A Strain of muscle, fascia and tendon of lower back, initial encounter (principal); I10 Essential (primary) hypertension; K21.9 Gastro-esophageal reflux disease without esophagitis; E11.40 Type 2 diabetes mellitus with diabetic neuropathy, unspecified; F17.210 Nicotine dependence, cigarettes, uncomplicated; Z88.5 Allergy status to narcotic agent; Z88.8 Allergy status to other drugs, medicaments and biological substances; Z79.4 Long term (current) use of insulin; Z79.899 Other long term (current) drug therapy; X50.0XXA Overexertion from strenuous movement or load, initial encounter
CPT/HCPCS: 96374; 96375; 99283; 99284; A9270; J1885; J2270

== ENCOUNTER 2023-05-29 04:49 | Emergency (ER) | payer MEDICAID, OTHER ==
[2023-05-29] MEDS ORDERED: Ondansetron 4 MG Tab.DIS ONE (05:19)
[2023-05-29] MEDS: Acetaminophen 500 MG Tab PO ONE (05:28)
[2023-05-29] MEDS: Ibuprofen 800 MG Tab PO ONE (05:28)
[2023-05-29] MEDS: Ondansetron 4 MG Tab.DIS PO ONE (05:28)
[2023-05-29 06:29] LABS: INFLUENZA A NAA NEGATIVE (NEGATIVE); INFLUENZA B NAA NEGATIVE (NEGATIVE)
[2023-05-29 06:30] LABS: CORONAVIRUS COVID-19 NAA NEGATIVE (NEGATIVE)
[2023-05-29 06:56] VITALS: BP 122/70; PULSE 70
== END 2023-05-29 06:56 | disposition home or self-care (01) ==
LOC: FB.ED 04:49
DX: K52.9 Noninfective gastroenteritis and colitis, unspecified (principal); J06.9 Acute upper respiratory infection, unspecified; I10 Essential (primary) hypertension; F17.210 Nicotine dependence, cigarettes, uncomplicated; E11.21 Type 2 diabetes mellitus with diabetic nephropathy; Z79.4 Long term (current) use of insulin; Z90.49 Acquired absence of other specified parts of digestive tract; Z88.5 Allergy status to narcotic agent; Z88.6 Allergy status to analgesic agent; Z20.822 Contact with and (suspected) exposure to COVID-19
CPT/HCPCS: 0240U; 87651-QW; 99283; 99284; A9270-GY; Q0162